=== PATIENT | male | born 1965 | race African-American/Black ===

== ENCOUNTER 2019-06-05 17:36 | Inpatient (IN) ==
--- NOTE | 2019-06-05 17:57 | EKG Report ---
Test Performed on : 06/05/2019 5:48:52 PM Test Reason : cp Blood Pressure : / mmHG Vent. Rate : 058 BPM Atrial Rate : 058 BPM P-R Int : 168 ms QRS Dur : 088 ms QT Int : 378 ms P-R-T Axes : 031 029 041 degrees QTc Int : 371 ms Sinus bradycardia. Otherwise normal ECG When compared with ECG of 02-APR-2019 14:16, No significant change was found Unconfirmed Result
--- NOTE | 2019-06-05 17:58 | PROVIDER DOCUMENTATION ---
HPI-Chest Pain - General Chief Complaint: Chest Pain Stated Complaint: CHEST PAIN Time Seen by Provider: 06/05/19 17:46 Source: patient Allergies/Adverse Reactions: Patient Allergies Allergy/AdvReac Type Severity Reaction Status Date / Time No Known Allergies Allergy Verified 06/05/19 17:44 Home Medications: Home Medication List Medication Instructions Recorded Confirmed Last Taken Type Amlodipine [Norvasc] 10 mg PO DAILY 04/02/19 06/05/19 06/05/19 08:00 History - History of Present Illness-CP Nature of Presenting Problem: Patient is a 53 yobm who complains of intermittent episodes of mid sternal chest pain x 1 week. States the episodes mostly occur at night when he is lying down and last approximately 10-15 minutes. He states it feels like an anxiety attack when it occurs. Denies exertional symptoms. Denies SOB, cough, fever, or any other complaints. Denies pain at present. He is non-toxic in appearance. Chest Pain Radiation: reports: no radiation Quality of Pain: reports: sharp Timing: gone now Context/Activities at Onset: reports: other (lying down) Modifying Factors: improves with: nothing Associated Symptoms: reports: denies symptoms Aspirin Treatment Today: 325 mg x 1 Prior Chest Pain/Cardiac Workup: reports: no prior cardiac workup Review of Systems - Adult - REVIEW OF SYSTEMS - ADULT Constitutional: reports: no symptoms reported. denies: chills, fever Eyes: reports: no symptoms reported Ears, Nose, Mouth & Throat: reports: no symptoms reported Cardiovascular: reports: see HPI. denies: edema, palpitations, syncope Respiratory: reports: no symptoms reported Gastrointestinal: reports: no symptoms reported Genitourinary: reports: no symptoms reported Musculoskeletal: reports: no symptoms reported Integumentary: reports: no symptoms reported Neurological: reports: no symptoms reported Psychiatric: reports: no symptoms reported Endocrine: reports: no symptoms reported Hematologic/Lymphatic: reports: no symptoms reported Allergic/Immunologic: reports: no symptoms reported All Other Systems: Reviewed and Negative Past History - Adult - PAST MEDICAL HISTORY-ADULT Review of Records: reports: Nursing Assessment Review, Medications Reviewed Major Childhood Illnesses: reports: denies history Cardiovascular: reports: HTN, hyperlipidemia Respiratory: reports: denies history Gastrointestinal: reports: denies history, hepatitis Genitourinary: reports: denies history Musculoskeletal: reports: denies history Neurological: reports: denies history Psychiatric: reports: anxiety, psychiatric problems, schizophrenia Endocrine/Immune: reports: denies history Other Conditions: reports: denies history - PRIOR SURGERIES/PROCEDURES Surgical/Procedure History: reports: none - IMMUNIZATION STATUS Childhood Immunizations: See Nurse Assessment Flu Vaccine: See Nurse Assessment - FAMILY HISTORY Family History: other (Brother: CHF, parents: HTN) - SOCIAL HISTORY Smoking: cigarettes, greater than 1 pack/day Physical Exam-General - PHYSICAL EXAM-ADULT Initial Vital Signs Reviewed: Yes - CONSTITUTIONAL General Appearance: alert, no apparent distress. negative: lethargic, slow to respond - EYES Eyes: PERRL/EOMI, pink conjunctivae - HEAD, EARS, NOSE, MOUTH & THROAT HENMT: normocephalic/atraumatic, moist mucous membranes - NECK Neck: non-tender, full range of motion, supple, normal inspection - RESPIRATORY Respiratory: chest non-tender, lungs clear, normal breath sounds, no respiratory distress, no accessory muscle use - CARDIOVASCULAR Cardiovascular: normal peripheral pulses, regular rate, rhythm, no edema, no gallop, no JVD, no murmur - GASTROINTESTINAL (ABDOMEN) Abdominal Exam: normal bowel sounds, non tender, soft - MUSCULOSKELETAL Back Exam: normal inspection Extremity: normal range of motion, non-tender, normal gait, normal inspection - SKIN Integumentary: normal color, warm/dry. negative: cyanosis, diaphoresis, jaundice, mottled, pallor - NEUROLOGIC Neurologic: grossly normal, no motor/sensory deficits - PSYCHIATRIC Psych/Mental Status: normal mood/affect, normal thought content, normal thought process, oriented x 3 - HEART Score HEART Score: History: Moderately Suspicious HEART Score: ECG: Normal HEART Score: Age: 45-65 Years HEART Score: Risk Factors for Atherosclerotic Disease: > or = 3 Risk Factors or History of Atherosclerotic Disease HEART Score: Troponin: < or = Normal Limit Total HEART Score:: 4 Progress - PLAN OF CARE/RESULTS Progress/Plan/Lab Results: Vital Signs - 8 hr 06/05/19 17:41 06/05/19 19:20 06/05/19 21:28 Temperature 98.1 F 97.9 F Pulse Rate 62 54 L 56 L Respiratory Rate 20 18 Blood Pressure 163/102 117/71 122/71 O2 Sat by Pulse Oximetry 100 98 99 Laboratory Results - last 24 hr 06/05/19 06/05/19 06/05/19 16:00 16:00 16:00 WBC 5.43 RBC 5.02 Hgb 15.2 Hct 45.7 MCV 91.0 MCH 30.3 MCHC 33.3 RDW Std Deviation 12.7 Plt Count 221 MPV 11.0 H Immature Gran % (Auto) 0.2 Neut % (Auto) 28.9 L Lymph % (Auto) 53.4 H Fannin % (Auto) 16.0 H Eos % (Auto) 1.3 Baso % (Auto) 0.2 Immature Gran # (Auto) 0.01 Neut # (Auto) 1.57 Lymph # (Auto) 2.90 Fannin # (Auto) 0.87 H Eos # (Auto) 0.07 Baso # (Auto) 0.01 PT INR PTT (Actin FS) D-Dimer, Quantitative < 0.27 Sodium 140 Potassium 4.5 Chloride 105 Carbon Dioxide 24 L Anion Gap 10 BUN 14 Creatinine 1.2 Estimated GFR/1.73 m2 > 60 BUN/Creatinine Ratio 12 Glucose 82 Calculated Osmolality 279 Calcium 9.4 Total Bilirubin 0.20 AST 26 ALT 29 Alkaline Phosphatase 68 Creatine Kinase 185 Troponin T Azu-C-Htwmtldnjvz Pept Total Protein 7.1 Albumin 4.2 Globulin 3.0 Albumin/Globulin Ratio 1.0 06/05/19 06/05/19 06/05/19 16:00 16:00 16:00 WBC RBC Hgb Hct MCV MCH MCHC RDW Std Deviation Plt Count MPV Immature Gran % (Auto) Neut % (Auto) Lymph % (Auto) Fannin % (Auto) Eos % (Auto) Baso % (Auto) Immature Gran # (Auto) Neut # (Auto) Lymph # (Auto) Fannin # (Auto) Eos # (Auto) Baso # (Auto) PT 13.0 INR 0.94 PTT (Actin FS) 34.4 D-Dimer, Quantitative Sodium Potassium Chloride Carbon Dioxide Anion Gap BUN Creatinine Estimated GFR/1.73 m2 BUN/Creatinine Ratio Glucose Calculated Osmolality Calcium Total Bilirubin AST ALT Alkaline Phosphatase Creatine Kinase Troponin T < 0.010 Omi-N-Jwgbldaixbl Pept 62 Total Protein Albumin Globulin Albumin/Globulin Ratio 06/05/19 20:45 WBC RBC Hgb Hct MCV MCH MCHC RDW Std Deviation Plt Count MPV Immature Gran % (Auto) Neut % (Auto) Lymph % (Auto) Fannin % (Auto) Eos % (Auto) Baso % (Auto) Immature Gran # (Auto) Neut # (Auto) Lymph # (Auto) Fannin # (Auto) Eos # (Auto) Baso # (Auto) PT INR PTT (Actin FS) D-Dimer, Quantitative Sodium Potassium Chloride Carbon Dioxide Anion Gap BUN Creatinine Estimated GFR/1.73 m2 BUN/Creatinine Ratio Glucose Calculated Osmolality Calcium Total Bilirubin AST ALT Alkaline Phosphatase Creatine Kinase Troponin T < 0.010 Bug-K-Nbvkezwuxed Pept Total Protein Albumin Globulin Albumin/Globulin Ratio Orders Category Date Time Status Admit - [facility] Routine AdmDCTranf 06/05/19 21:44 Active Activity - Up Ad Nataliya ORDERED Care 06/05/19 21:44 Active Call Admitting on Arrival AT ADMISSION Care 06/05/19 21:45 Active Cardiac Monitoring DIRECTED Care 06/05/19 17:46 Active Resuscitation Status Routine Care 06/05/19 21:44 Ordered Saline Loc DIRECTED Care 06/05/19 21:44 Active Saline Loc NOW Care 06/05/19 17:46 Active Vital Signs Order ROUTINE Care 06/05/19 21:44 Active Z-Document. for Tele Applied ORDERED Care 06/05/19 21:45 Active Heart Healthy Diet Diet 06/05/19 21:46 Active NPO Diet 06/06/19 00:01 Active CHEST-2 VIEWS [RAD] Stat Exams 06/05/19 17:46 Completed CBC WITH ELECTRONIC DIFF [HEME] Stat Lab 06/05/19 16:00 Completed CK PROFILE [SP CHEM] Stat Lab 06/05/19 16:00 Completed COMPREHENSIVE METABOLIC PANEL [CHEM] Stat Lab 06/05/19 16:00 Completed D-DIMER [COAG] Stat Lab 06/05/19 16:00 Completed PRO B-NATRIURETIC PEPTIDE Stat Lab 06/05/19 16:00 Completed PROTIME WITH INR [COAG] Stat Lab 06/05/19 16:00 Completed PTT [COAG] Stat Lab 06/05/19 16:00 Completed TROPONIN T Q6H Lab 06/05/19 21:47 Ordered TROPONIN T Q6H Lab 06/06/19 03:47 Ordered TROPONIN T Stat Lab 06/05/19 16:00 Completed TROPONIN T Timed Lab 06/05/19 20:45 Completed Acetaminophen [Tylenol] Med 06/05/19 21:44 Ordered 650 mg PO Q6H PRN PRN Morphine Med 06/05/19 21:44 Ordered 2 mg IV Q4H PRN Nitroglycerin Sl [Nitroglycerin] Med 06/05/19 21:48 Ordered 0.4 mg SL Q5M PRN PRN Ondansetron [Zofran] Med 06/05/19 21:44 Ordered 4 mg IV Q6H PRN CP/SOB/Palp >45 yrs of Age Stat Oth 06/05/19 17:45 Ordered Oxygen Device Routine Oth 06/05/19 21:45 Active Telemetry [OM.EQ] Routine Oth 06/05/19 21:44 Active EKG [EKG] Routine Ther 06/05/19 19:55 Ordered EKG [EKG] Stat Ther 06/05/19 17:46 Draft Transfer/Admit Order [TRANSFER] Routine Transfer 06/05/19 21:47 Ordered Result Diagrams: 06/05/19 16:00 06/05/19 16:00 - REASSESSMENT Reassessment #1 Time Reassessed: 20:15 Status: unchanged (Pt still denies pain. In agreement with current treatment plan. Waiting on repeat trop/EKG to dispo.) Reassessment #2 Time Reassessed: 21:41 Status: other (Pt states he has been having some episodes of chest pain since being in the ED. He now states that when the episodes occur the pain radiates to his left shoulder blade. Denies pain currently. Discussed admission, pt willing to stay. Admitting HPS paged.) - EKG 1 Time of EKG reading by physician:: 17:55 EKG Read and Signed by:: Donnie Lin EKG Interpretation (*Must complete 3 of following elements*): Abnormal Rate: 58 Rhythm: sinus bradycardia QRS: normal ST Wave: normal 2 Time of EKG reading by physician:: 21:25 EKG Read and Signed by:: Aliza Young EKG Interpretation (*Must complete 3 of following elements*): Abnormal Rate: 54 Rhythm: sinus bradycardia QRS: normal ST Wave: normal Prior EKG Comparison: unchanged from prior - XRAY 1 XRAY Study: Chest ([facility] - [address] , [address] [address] [facility] - [address] [place] [address] Department of Imaging Patient: JULIO C SALAZAR Date: 06/05/19#: [id number] : 1965ADM Status: PRE ERAcct#: [id number] Age/Sex: 53/MRoom/Bed: Loc: P.ED Ordering Physician: Donnie Lin MD Family Physician: None,PCP Reason for Procedure: cp ___ Signed CHEST-2 VIEWS - 06/05/2019 INDICATION: cp COMPARISON: None FINDINGS: There are large calcified granulomas in the wang bilaterally. The lungs are clear. Heart size is normal. No pneumothorax or pleural effusion. IMPRESSION: Extensive old calcified granulomatous disease. No acute disease. Electronically signed by Mario Epps 06/05/2019 6:44 PM 06/05/191843 Interpreting Physician: Mario Epps MD Dictated Date/Time: 06/05/191843 cc: Donnie Lin MD; None,PCP) - CONSULTS/PCP/HOSPITALIST Notification #1 *Consult/PCP/Hospitalist*: Dr. Islas Time Discussed: 21:48 Reason/Comments: admission- cp Consult Disposition: Admit Departure - Departure Date of Disposition Decision: 06/05/19 Time of Disposition Decision: 21:36 DIAGNOSIS: Chest pain Qualifiers: Chest pain type: unspecified Qualified Code(s): R07.9 - Chest pain, unspecified Disposition: HOME 01 Certified Medical Emergency: Emergent Condition: Stable Additional Instructions: ED Follow Up Instructions: Aspirin 81 mg once daily until cleared by cardiology. You have been treated by a care provider in the Emergency Department. These instructions are being provided to you so you can have an understanding of how to care for yourself upon discharge. Upon discharge from the Emergency Department, you are responsible for making arrangements for follow-up care by a physician of your choice. Take all prescribed medications as directed. Return to the Emergency Department immediately for any new or worsening symptoms. You may call the Physician Referral phone number at [phone] to obtain a list of Physicians who are taking new patients. Referrals and Follow-Ups: None,PCP [Primary Care Provider] - Prieto Gonzalez MD [ACTIVE STAFF PHYSICIAN] - Call for Appoint. 1-2days Work Excuses: Return to School/Parent Work Discharge Education: Nonspecific Chest Pain, [id number] - Critical Care Note This patient required my direct & personal management of CC.: No Attestation - Physician/ ZOHREH Attestation Patient care was provided by Advanced Practice Provider:: Yes Advanced Practice Provider:: Maddie Worley Advanced Practice Provider documentation review:: The Mid-level provider documentation, treatment plan and medical decision making was reviewed by the physician who agrees with all treatment and medical decision making by the MLP. The physician spent face to face time with patient:: No Advanced Practice Provider documentation review:: Supervising physician onsite and consulted in the evaluation and care of this patient. The physician did not have a face to face encounter with the patient.
[2019-06-05 18:25] LABS: BASO# 0.01 X1000 (0.0-0.2); BASO% 0.2 % (0.0-0.8); EOS# 0.07 X1000 (0.0-0.7); EOS% 1.3 % (0.0-10.0); HEMATOCRIT 45.7 % (42.0-52.0); HEMOGLOBIN 15.2 g/dL (14.0-18.0); IMM GRAN# 0.01 X1000 (0.0-0.04); IMM GRAN% 0.2 % (0.0-0.5); LYMPH% 53.4 % (20.5-51.1); MCH 30.3 PG (27-31); MCHC 33.3 g/dL (33-37); MONO# 0.87 X1000 (0.11-0.59); NEUT# 1.57 X1000 (1.4-6.5); NEUT% 28.9 % (42.2-75.2); PLT 221 X1000 (130-400); RBC 5.02 XMIL (4.7-6.1); RDW 12.7 % (11.5-14.5); WBC 5.43 X1000 (4.8-10.8)
[2019-06-05 18:40] LABS: INR 0.94
[2019-06-05 18:41] LABS: PTT 34.4 Seconds (22.3-41.8)
--- NOTE | 2019-06-05 18:47 | Diag Imaging Result Doc PS360 ---
CHEST-2 VIEWS - 06/05/2019 INDICATION: cp COMPARISON: None FINDINGS: There are large calcified granulomas in the wang bilaterally. The lungs are clear. Heart size is normal. No pneumothorax or pleural effusion. IMPRESSION: Extensive old calcified granulomatous disease. No acute disease. Electronically signed by Mario Epps 06/05/2019 6:44 PM
[2019-06-05 18:48] LABS: AGAP 10; ALBUMIN 4.2 g/dL (3.5-5.0); ALKALINE PHOSPHATASE 68 U/L (32-122); BUN 14 mg/dL (8-22); CALCIUM 9.4 mg/dL (8.8-10.2); CHLORIDE 105 mmol/L (98-107); CK PROFILE 185 U/L (24-204); COSMO 279; CREATININE 1.2 mg/dL (0.7-1.2); ESTIMATED GFR > 60; GLUCOSE 82 mg/dL (70-104); GOT 26 U/L (10-34); GPT 29 U/L (10-44); POTASSIUM 4.5 mmol/L (3.5-5.1); SODIUM 140 mmol/L (136-145); TCO2 24 mmol/L (25-35); TOTAL PROTEIN 7.1 g/dL (6.3-8.3)
[2019-06-05] MEDS ORDERED: ZOFRAN IV PRN (21:44)
[2019-06-05] MEDS ORDERED: MORPHINE IV PRN (21:44)
[2019-06-05] MEDS ORDERED: TYLENOL PO PRN (21:44)
[2019-06-05] MEDS ORDERED: NITROGLYCERIN SL PRN (21:48)
--- NOTE | 2019-06-05 22:23 | EKG Report ---
Test Performed on : 06/05/2019 9:19:48 PM Test Reason : CP Blood Pressure : / mmHG Vent. Rate : 000 BPM Atrial Rate : 000 BPM P-R Int : 000 ms QRS Dur : 000 ms QT Int : 000 ms P-R-T Axes : 000 000 000 degrees QTc Int : 000 ms No QRS complexes found, no ECG analysis possible When compared with ECG of 05-JUN-2019 17:48, (Unconfirmed) Current undetermined rhythm precludes rhythm comparison, needs review Unconfirmed Result
[2019-06-06] MEDS ORDERED: PNEUMOVAX 23 IM ONE (01:31)
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
[2019-06-06 08:48] LABS: CHOLESTEROL 185 mg/dL (0-200); HDL 48 mg/dL (35-55); LDL 90 mg/dL; TRIGLYCERIDES 233 mg/dL (39-160); VLDL 47 mg/dL
--- NOTE | 2019-06-06 17:20 | Diag Imaging Result Document ---
PROCEDURE NAME: MYOCARDIAL PERF SCAN, STR/REST - 06/06/2019 STUDY: Rest/stress treadmill exercise stress test myocardial perfusion imaging study. INDICATION: A 53-year-old male with chest pain. DESCRIPTION: The patient came into the nuclear laboratory, received resting injection of technetium 99 sestamibi 12.8 mCi. Multiple tomographic views of the cardiac structures were obtained at rest. Subsequently, the patient underwent treadmill exercise protocol. At peak exercise, injected with technetium 99 sestamibi 39.5 mCi. Multiple tomographic views of the cardiac structures were obtained following completion of the exercise protocol. SUMMARY OF THE ELECTROCARDIOGRAPHIC PORTION OF THE STUDY: Resting ECG shows sinus rhythm, rate is 57 beats per minute. Resting blood pressure 126/84. Resting ECG looks basically normal. The patient walked on the treadmill for a total time of 7 minutes and 28 seconds. The patient completed two stages of the Danie protocol and walked for 1 1/2 minutes into the third stage, achieving a maximum heart rate of 146 beats per minute, representing 86% of maximum predicted heart rate for the patient's age. Peak blood pressure 144/90. Maximum workload is 9.2 METS. Peak exercise ECG showed sinus tachycardia without any ischemic ST-T changes. The patient was injected with radiotracer one minute prior to the termination of exercise. Following the completion of the test, the heart rate and blood pressure returned back to their baseline. In summary, the electrocardiographic response to a walking Lexiscan protocol is negative for effort induced ischemia. The level of stress was adequate based on double product of peak heart rate x peak blood pressure equal to 22,360. Exercise capacity decreased by 20%. SUMMARY OF THE MYOCARDIAL PERFUSION PORTION OF THE STUDY: Poststress tomographic views of the left ventricle showed essentially normal myocardial perfusion. There is no convincing evidence of any postexercise defect. Rest images showed normal perfusion. Polar plots revealed the same. No convincing evidence of any inducible ischemia nor myocardial scar. The gated SPECT showed normal left ventricular systolic function with ejection fraction of 67% with normal ventricular volumes and no wall motion abnormality. The lung/heart ratio is normal at 0.37. TID is normal at 0.98. SUMMARY: This study shows: 1. Normal electrocardiographic response to exercise. The patient achieved 86% of maximum predicted heart rate for his age, good workload of 9.2 METS. Exercise capacity decreased by 20%. 2. Normal poststress myocardial perfusion scan. There is no scintigraphic evidence of exercise induced myocardial ischemia. 3. Normal left ventricular systolic function, ejection fraction calculated at 67% with normal ventricular volumes. No wall motion abnormality. The study represents low risk for ischemic events. cc: Prieto Gonzalez MD
[2019-06-06] MEDS ORDERED: RISPERDAL PO SCH (21:00)
[2019-06-06] MEDS ORDERED: COGENTIN PO ONE (21:47)
[2019-06-06] MEDS: ATARAX PO SCH (22:06)
[2019-06-06] MEDS: NORVASC PO SCH (23:10)
[2019-06-07 08:02] VITALS: BP 113/76
--- NOTE | 2019-06-07 09:05 | PROGRESS NOTE ---
DATE: 06/06/2019 Patient seen and examined by myself. Full note dictated and discussed with nurse practitioner. The patient presented to the hospital with chest pain. States that he has had midsternal pain for approximately a week that has gotten worse over the past few days. It lasts 10 to 15 minutes, sometimes occurs while he is at rest. He has a history of schizophrenia, as well as hypertension and hepatitis. We are going to admit him to the hospital. Rule out [facility]. Hopefully can obtain a stress test. If his symptoms improve, possibly discharge home later this afternoon. cc: Terrence Islas MD
--- NOTE | 2019-06-07 09:51 | ECHO REPORT ---
ORDER DATE: 06/06/2019 INTERPRETING PHYSICIAN: Dr. Gonzalez CLINICAL INDICATIONS: Chest pain. M-MODE MEASUREMENTS: Left ventricle end diastole: 4.1 cm. Left ventricle end systole: 2.5 cm. Posterior wall: 1.0 cm. Interventricular septum: 1.1 cm. Left atrium: Appears to be grossly normal. Aortic diameter: 2.7 cm. SUMMARY OF 2-DIMENSIONAL IMAGING: The left ventricular function is normal. Visually the ejection fraction appears to be in the order of 65-70%. There is no wall motion abnormality noted. The left atrium appears to be generous in size. The right ventricle and atrium appear to be normal. Aortic valve has 3 cusps. Color flow mapping unremarkable. Aortic cole is normal. The mitral valve also looks normal. Color flow mapping unremarkable. Pulse wave Doppler of mitral inflow is normal. Tissue Doppler of septal and lateral mitral annulus averages 10 cm per second. There is no diastolic dysfunction. Pulmonary venous flow is normal. Tricuspid valve is normal. Color flow mapping unremarkable. The inferior vena cava is not dilated. Pulmonary pressure is estimated at 23 mmHg. Pulmonic valve is unremarkable. There is no pericardial effusion, mass and no thrombus. SUMMARY: This echocardiographic study appears to be grossly well within normal limits. Clinical correction recommended. cc: Prieto Gonzalez MD
[2019-06-07] MEDS: ATARAX PO SCH (09:55)
[2019-06-07] MEDS: NORVASC PO SCH (09:55)
--- NOTE | 2019-06-07 20:11 | DISCHARGE SUMMARY ---
ADMISSION DATE: 06/05/2019 DISCHARGE DATE: 06/07/2019 CONSULTATIONS: None. PERTINENT PROCEDURES: 1. Chest x-ray: Extensive calcified granulomatosis disease. 2. EKG: Sinus bradycardia. 3. Perfusion scan showed no evidence of induced myocardial ischemia. DISCHARGE DIAGNOSES: 1. Chest pain, ruled out. The patient underwent a perfusion scan that was negative. Three sets of negative cardiac enzymes. 2. Hypertension stable. 3. Hyperlipidemia. 4. Hepatitis C as the patient reports he got from alf getting tattoos and will undergo treatment in [place] soon. 5. Anxiety. 6. Schizophrenia. HOSPITAL COURSE: Briefly, Mr. Springer is a 53-year-old gentleman who carries a past medical history of hypertension, hyperlipidemia, hepatitis C, anxiety and schizophrenia, reporting having chest pain on and off for the last few months. However, it became more regular this past week. It awoke him from his sleep. It lasted a few minutes. He states that it would start in his chest and radiate to his left shoulder and across his back. There are not really any associated symptoms. No nausea, vomiting, diaphoresis, dizziness, palpitations, or shortness of breath. Workup in the ED showed negative troponins. EKG showed a sinus bradycardia with no ST or T-wave abnormalities. He has remained chest pain free since his admission. His cardiac workup has been benign. We did briefly discuss GI workup, starting some [id number] Prilosec for heartburn. VITAL SIGNS: At time of discharge, temperature is 97.6 degrees heart rate 57, respirations 16, blood pressure 113/76, O2 is 100% on room air. DISCHARGE MEDICATIONS: 1. Cogentin 1 mg p.o. t.i.d. 2. Norvasc 10 mg p.o. daily. 3. Risperidone 4 mg p.o. at bedtime. 4. Vistaril 50 mg p.o. t.i.d. Again, we did discuss [id number] PPIs. FOLLOWUP: Mr. Springer is being discharged back home with self care. Recommend follow-up with well testing operator, Dr. Gonzalez, and to obtain a primary care provider and to continue to seek treatment for his hepatitis C in [place]. DISCHARGE INSTRUCTIONS: He is take all medications as prescribed. He can return to the ED or call 911 for any worsening of symptoms. Dictated by ELVIS Krueger for Terrence Islas MD cc: Terrence Islas MD
[2019-06-07] MEDS ORDERED: COGENTIN PO SCH (21:00)
--- NOTE | 2019-06-08 02:47 | DISCHARGE SUMMARY ---
ADMISSION DATE: 06/05/2019 DISCHARGE DATE: 06/07/2019 ADDENDUM: Patient seen and examined by myself. Full note dictated and discussed with nurse practitioner. On discharge, patient is awake, alert. He states he is feeling a lot better. Still having some shortness of breath, but this is chronic and normal. His chest pain has resolved. We are going to discharge him home. He will follow up with outpatient with treatment facility of choice. cc: Terrence Islas MD
== END 2019-06-07 10:06 | disposition home or self-care (01) | DRG 313 ==
LOC: P.ED 17:36 → P.MEDSURG 23:07
PROVIDERS: ATTEND Family Medicine